=== PATIENT | female | born 1965 | race Caucasian/White ===

== ENCOUNTER 2019-03-02 07:46 | Day surgery (SDC) | payer OTHER ==
[2019-03-02] MEDS ORDERED: PROPOFOL 40 ML (09:00)
== END 2019-03-02 12:06 | disposition home or self-care (01) ==
LOC: GIL 07:46
DX: Z12.11 Encounter for screening for malignant neoplasm of colon (principal); D12.6 Benign neoplasm of colon, unspecified
CPT/HCPCS: 45380; 88305